=== PATIENT | male | born 1980 | race Caucasian/White ===

== ENCOUNTER → 2020-06-25 | Outpatient (CLI) | payer BC | END | disposition home or self-care (01) | LOC: LABWHC1 16:05 | PROVIDERS: ATTEND Ophthalmology | DX: T14.8XXA Other injury of unspecified body region, initial encounter (principal); R50.9 Fever, unspecified | CPT/HCPCS: 36415; 86611 ==

== ENCOUNTER → 2020-07-08 | Outpatient (CLI) | payer BC ==
[2020-07-08 23:32] LABS: Cardiolipin IgA Antibody 2.2 U/mL
[2020-07-08 23:33] LABS: Cardiolipin Ab IgG Interp NEGATIVE (NEGATIVE)
[2020-07-08 23:56] LABS: Cardiolipin Ab IgM Interp NEGATIVE (NEGATIVE); Cardiolipin IgM Antibody 0.6 U/mL
[2020-07-09 11:59] LABS: APTT 42 Sec(s) (<43); DRVVT 1:1 Mix 39 Sec(s) (<44); Dilute Russell Viper Venom 48 Sec(s) (<44)
[2020-07-11 02:32] LABS: Bartonella henselae Ab, IgG <1:64; Bartonella henselae Ab, IgM < 1:16
[2020-07-11 11:06] LABS: Lipoprotein A <5 mg/dL (0-30)
== END | disposition home or self-care (01) ==
LOC: LABWHC1 13:00
PROVIDERS: ATTEND Ophthalmology
DX: H34.232 Retinal artery branch occlusion, left eye (principal)
CPT/HCPCS: 36415; 83090; 83695; 85240; 85300; 85303; 85306; 85420; 85613; 85730; 86146; 86147; 86611

== ENCOUNTER → 2020-07-16 | Outpatient (CLI) | payer BC ==
--- NOTE | 2020-07-17 13:13 | MR ---
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 CONTRAST: Performed utilizing 10 mL intravenous Gadavist gadolinium contrast. TECHNIQUE: Multiplanar, multiecho imaging on a 3.0 Ying magnet is performed through the brain. Dedic ated images were performed through the orbits. Study is performed within 24 hours of arrival to the hospital. The craniovertebral junction is normal. The pituitary is normal. Optic chiasm is visualized is norm al. Normal vascular flow voids are present. Diffusion-weighted imaging is performed. No abnormal hyperintensity is present to suggest an acute i ntracranial infarct or acute ischemic change. Occipital lobes appear normal. Optic radiations appear normal. Punctate hyperintensities are in the subcortical white matter of the centrum semiovale bilaterally. T hese 3 lesions are within normal limits for patient of this age. These are nonspecific but could be r elated to microvascular ischemic change or migraine headaches among other etiologies. Ventricles and sulci are appropriate for the patient age. No dilated ventricles or diminished extra-a xial spaces are evident. There appears to be some increase fluid adjacent to the distal optic nerves bilaterally on T2 sequenc es.. The optic nerves themselves appear normal. Extraocular muscles are normal. No intraconal or extr aconal masses are evident. Superior ophthalmic veins appear normal. The globes are symmetrical. Following contrast administration no suspicious enhancement is evident within the visualized included portions. IMPRESSIONS: 1. There is some fluid surrounding the optic nerve especially distally and bilaterally on T2-weighted sequences. This has been associated with increased intracranial pressure. Consider additional evalua tion. 2. Pre and postcontrast MRI brain appears within normal limits without suspicious changes to suggest increased intracranial pressure to account for the optic nerve sheath fluid findings.
== END | disposition home or self-care (01) ==
LOC: RADMRIMAIN 20:24
PROVIDERS: ATTEND Ophthalmology
DX: H47.093 Other disorders of optic nerve, not elsewhere classified, bilateral (principal)
CPT/HCPCS: 70543; 70553; A9585

== ENCOUNTER → 2020-08-08 | Outpatient (CLI) | payer BC ==
--- NOTE | 2020-08-08 16:34 | US ---
EXAMINATION TYPE: US carotid duplex BILAT DATE OF EXAM: 08/08/2020 COMPARISON: NONE CLINICAL HISTORY: 39-year-old male H34.11 Central retinal artery occlusion, right eye. TECHNIQUE: Carotid duplex ultrasound examination. Indirect Doppler criteria was utilized. FINDINGS: EXAM MEASUREMENTS: RIGHT: Peak Systolic Velocity (PSV) cm/sec ----- Right CCA: 91.4 ----- Right ICA: 92.7 ----- Right ECA: 128.6 ICA/CCA ratio: 1.0 RIGHT: End Diastole cm/sec ----- Right CCA: 21.5 ----- Right ICA: 34.4 ----- Right ECA: 25.2 LEFT: Peak Systolic Velocity (PSV) cm/sec ----- Left CCA: 100.0 ----- Left ICA: 94.0 ----- Left ECA: 120.5 ICA/CCA ratio: 0.9 LEFT: End Diastole cm/sec ----- Left CCA: 25.9 ----- Left ICA: 38.3 ----- Left ECA: 22.0 VERTEBRALS (direction of flow): Right Vertebral: Antegrade Left Vertebral: Antegrade Rhythm: Normal Felt Hooker notes: No significant stenosis. IMPRESSION: No hemodynamically significant internal carotid artery stenosis on either side. Criteria for Assigning % of Stenosis / Diameter reduction (Estimation based on the indirect measurements of the internal carotid artery velocities (ICA PSV). 1. Normal (no stenosis)=ICA PSV < 125 cm/s: ratio < 2.0: ICA EDV<40 cm/s. 2. Less than 50% stenosis=ICA PSV < 125 cm/s: ratio < 2.0: ICA EDV<40 cm/s. 3. 50 to 69% stenosis=ICA PSV of 125 to 230 cm/s: ration 2.0 ? 4.0: ICA EDV 40-100 cm/s. 4. Greater than 70% stenosis to near occlusion= ICA PSV > 230 cm/s: ratio > 4.0: ICA EDV > 100 cm/s. 5. Near occlusion= ICA PSV velocities may be low or undetectable: variable ratio and ICA EDV. 6. Total occlusion=unable to detect flow.
--- NOTE | 2020-08-09 08:00 | ECHOF ---
Referral Reason:H34.11 central retinal artery occlusion MEASUREMENTS -------- HEIGHT: 180.3 cm WEIGHT: 99.8 kg BP: 120/80 RVIDd: 3.0 cm (< 3.3) IVSd: 1.1 cm (0.6 - 1.1) LVIDd: 4.6 cm (3.9 - 5.3) LVPWd: 1.1 cm (0.6 - 1.1) IVSs: 1.5 cm LVIDs: 3.0 cm LVPWs: 1.9 cm LA Diam: 3.2 cm (2.7 - 3.8) LAESV Index (A-L): 17.76 ml/m Ao Diam: 2.9 cm (2.0 - 3.7) AV Cusp: 2.4 cm (1.5 - 2.6) MV EXCURSION: 14.967 mm (> 18.000) MV EF SLOPE: 82 mm/s (70 - 150) EPSS: 0.4 cm MV E All: 0.73 m/s MV DecT: 206 ms MV A All: 0.42 m/s MV E/A Ratio: 1.76 FINDINGS -------- Sinus rhythm. This was a technically adequate study. The left ventricular size is normal. There is borderline concentric left ventricular hypertrophy. Overall left ventricular systolic function is normal with, an EF between 55 - 60 %. The diastolic filling pattern is normal for the age of the patient 6.67. The right ventricle is normal in size. Normal LA size by volume 22+/-6 ml/m2. The right atrial size is normal. Interatrial and interventricular septum intact. The aortic valve is trileaflet, and appears structurally normal. No aortic stenosis or regurgitation. The mitral valve is normal. There is trace mitral regurgitation. The tricuspid valve appears structurally normal. No regurgitation noted Trace/mild (physiologic) pulmonic regurgitation. The aortic root size is normal. Normal inferior vena cava with normal inspiratory collapse consistent with estimated right atrial pre ssure of 5 mmHg. There is no pericardial effusion. CONCLUSIONS -------- 1. There is borderline concentric left ventricular hypertrophy. 2. Overall left ventricular systolic function is normal with, an EF between 55 - 60 %. 3. Normal LA size by volume 22+/-6 ml/m2. 4. The aortic valve is trileaflet, and appears structurally normal. No aortic stenosis or regurgitati on. 5. There is trace mitral regurgitation. 6. Trace/mild (physiologic) pulmonic regurgitation. 7. There is no pericardial effusion. MATERIALS ENGINEER: Paula Singh RDCS
== END | disposition home or self-care (01) ==
LOC: RADUSWWP 13:58
PROVIDERS: ATTEND Family Medicine
DX: I37.1 Nonrheumatic pulmonary valve insufficiency (principal); H34.11 Central retinal artery occlusion, right eye
CPT/HCPCS: 93306; 93880

== ENCOUNTER → 2020-08-26 | Outpatient (CLI) | payer BC ==
--- NOTE | 2020-08-27 08:17 | CT ---
EXAMINATION TYPE: CT angio head neck DATE OF EXAM: 08/26/2020 COMPARISON: None HISTORY: Left eye blindness x1 month ago CT DLP: 1518.3 mGycm CONTRAST: Performed with IV Contrast, patient injected with 65 mL of Isovue 370. Combination Contrast CTA cervical carotids and [place] CTA cervical carotids with 3-D recons truction Contrast CTA of the cervical carotids was performed 3-D reconstruction imaging obtained at a separate workstation. Right carotid system: No significant plaque is seen of the right common carotid artery. There is No significant plaque also noted at the carotid bulb and proximal ICA. No significant diameter reduct ion. ECA is patent. Right vertebral artery appears unremarkable. Left carotid system: No significant plaque is seen of the left common carotid artery. There is No si gnificant plaque also noted at the carotid bulb and proximal ICA. No significant diameter reduction . ECA is patent. Left vertebral artery appears unremarkable. IMPRESSION: 1. No significant diameter reduction to account for the patient's symptoms. CTA [place] with 3-D reconstruction Contrast CTA of the [place] was performed 3-D reconstruction imaging obtained at a separate workstation. Vertebrobasilar system as well as intracranial portions of the internal carotid arteries and their ma catherine tributaries are patent. I do not see evidence for sizable aneurysm or vascular malformation. Pl ease note MRI provides greater sensitivity and specificity. Visualized brain appears grossly unremar kable. IMPRESSION: 1. No significant abnormality.
== END | disposition home or self-care (01) ==
LOC: RADCTMAIN 17:51
PROVIDERS: ATTEND Psychiatry & Neurology Neurology
DX: I67.9 Cerebrovascular disease, unspecified (principal)
CPT/HCPCS: 70496; 70498; Q9967

== ENCOUNTER → 2021-03-05 | Outpatient (CLI) | payer BC ==
--- NOTE | 2021-03-05 19:33 | CONS ---
CONSULTATION DATE OF SERVICE: 03/05/2021 40-year-old gentleman has been evaluated in Sleep Center for possible obstructive sleep apnea-hypopnea syndrome. HISTORY OF PRESENT ILLNESS/SLEEP WAKE EVALUATION: SLEEP SCHEDULE: Patient's usual sleep schedule from 10 p.m. to 5:30 a.m. on weekdays and from 10:00 pm- midnight until 7 a.m. on weekends. FALLING ASLEEP: No problems with falling asleep, although he has TV in bedroom. DURING SLEEP: He usually sleeps on the back and side position. He has loud snoring and he wakes up from sleep with episodes of nocturia. DURING THE DAY/SLEEP WAKE EVALUATION: In the morning, the patient wakes up tired, has difficulties paying attention, has problems with concentration. [place] Sleepiness Scale is 8. He is taking naps around 6:00 pm. Usually no vivid dreams during the naps. No history of hypnagogic hallucinations, sleep paralysis or cataplexy. PAST MEDICAL HISTORY: Positive for episodes of hemianopsia on 1 side and then on another side, hyperlipidemia, nasal breathing problems. 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 MEDICATIONS: Atorvastatin once a day. SOCIAL HISTORY: Positive for smoking for 26 years. Alcohol consumption rarely. FAMILY HISTORY: Cancer. REVIEW OF SYSTEMS: Snoring, feeling tiredness in the morning after awakenings, difficulties to concentrate. PHYSICAL EXAMINATION: GENERAL: gentleman without distress. BP 121/75, HR 55, RR 18, height 5 feet 11 inches, weight 238.0, body mass index 33.1, temperature 98 oxygen saturation at room air 98%. Oropharynx extremely low position of soft palate, Mallampati 4. NECK is 16-1/2 inches in circumference. Neck: Supple, no JVD. Thyroid is not palpable. LUNGS: Clear to percussion and to auscultation. Good air exchange. No wheezing or rhonchi. HEART: S1, S2 regular. No murmurs, gallops, or rubs. ABDOMEN: Soft and nontender. Bowel sounds are present. No organomegaly appreciated. EXTREMITIES: No clubbing or cyanosis. SANDING MACHINE BUFFER: Awake, alert, and oriented X3. Cranial nerves 2 to 7 intact. There is no fasciculation or atrophy. noted. No focal deficits observed. IMPRESSION: 1. Loud snoring, extremely low position of soft palate, possible obstructive sleep apnea-hypopnea syndrome. 2. Hyperlipidemia. 3. History of lost vision on the half of visual field first on 1 side and then on another side, possibly a stroke. 4. 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 5. Status post nasal surgery for nasal septum deviation. 6. Restriction of nasal breathing. PLAN: Thank you very much for referring this patient for consultation, Sincerely, Mario Cali MD, PhD, FAASM Diplomat of [employer] Sleep Medicine Board of [employer] Senior Service Technician of [facility] [place] MMODL / IJN: [id number] /
== END ==
LOC: SLEEP 16:36
PROVIDERS: ATTEND Internal Medicine
DX: R06.83 Snoring (principal); E78.5 Hyperlipidemia, unspecified; R06.89 Other abnormalities of breathing; Z90.81 Acquired absence of spleen; Z98.890 Other specified postprocedural states; Z86.69 Personal history of other diseases of the nervous system and sense organs
CPT/HCPCS: 99211

== ENCOUNTER → 2021-05-28 | Outpatient (CLI) | payer OTHER ==
--- NOTE | 2021-05-28 21:20 | SFUN ---
SLEEP CENTER FOLLOW UP NOTE DATE OF SERVICE: 05/28/2021 40-year-old gentleman has been followed in Sleep Center to discuss results of the sleep study and following plan. I discussed results of sleep studies inpatient with apnea with the patient in detail. Diagnostic polysomnogram showed mild obstructive sleep apnea with apnea-hypopnea index 5.3, in REM sleep 5.5, and periodic limb movements 24.1 times per hour. The patient continues to snore and sometimes feels tiredness and sleepiness during the day. The patient has history of changes of vision in the past. Possible stroke. MEDICATIONS: Atorvastatin. PHYSICAL EXAMINATION: GENERAL: Patient in no distress. BP 134/68, HR 76, RR 14, weight 237.4, temperature 97.4, oxygen saturation at room air 98%. Oropharynx: Short distance between soft palate. NECK: Supple, no JVD. Thyroid is not palpable. LUNGS: Clear to percussion and to auscultation. Good air exchange. No wheezing or rhonchi. HEART: S1, S2 regular. No murmurs, gallops, or rubs. ABDOMEN: Soft and nontender. Bowel sounds are present. No organomegaly appreciated. EXTREMITIES: No clubbing or cyanosis. ABSTRACTER: Awake, alert, and oriented X3. Cranial nerves 2 to 7 intact. There is no fasciculation or atrophy. noted. No focal deficits observed. IMPRESSION: 1. Mild obstructive sleep apnea-hypopnea syndrome. 2. Periodic limb movements have been documented during the sleep study. 3. Hyperlipidemia. 4. History of episodes of changing of vision, possibly a stroke. PLAN: 1. Patient will be started on treatment with AutoPAP with low level of pressure and small to medium nasal pillow mask. 2. Patient should use equipment every night for the whole night. 3. I offered the patient pharmacotherapy for periodic limb movements. At the present time, we decided not to initiate that treatment. 4. Sleep hygiene with regular time in bed for at least 8 hours. 5. No driving if feeling sleepiness. 6. Follow-up visit in 30-90 days after initiation of CPAP treatment. Thank you very much for allowing me to participate in management of your patient. Sincerely, Mario Cali MD, PhD, FAASM Diplomat of [employer] Sleep Medicine Board of [employer] Sleeve Setter Lockstitch of [facility] [place] MMODL / IJN: [id number] /
== END ==
LOC: SLEEP 13:40
PROVIDERS: ATTEND Internal Medicine
DX: G47.33 Obstructive sleep apnea (adult) (pediatric) (principal); G47.61 Periodic limb movement disorder; E78.5 Hyperlipidemia, unspecified; Z86.69 Personal history of other diseases of the nervous system and sense organs

== ENCOUNTER → 2023-08-18 | Outpatient (CLI) | payer OTHER ==
--- NOTE | 2023-08-18 18:18 | US ---
EXAMINATION TYPE: US scrotum with doppler. Grayscale and color Doppler Duplex imaging performed of messi odonnell scrotum. 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 Hx Vasectomy EXAM MEASUREMENTS: TESTICLES: Right Testicle: 3.9 x 2.5 x 3.8 cm Left Testicle: 4.1 x 2.2 x 3.2 cm EPIDIDYMIS HEAD: Right Epididymis: 1.1 x 1.3 x 0.7 cm Left Epididymis: 0.9 x 1.3 x 1.1 cm Doppler performed to assess for testicular vascularity; good bilateral color flow and waveforms are s een. There is no evidence of testicular torsion. Presence of hydroceles: No Presence of varicoceles: Yes IMPRESSION: 1. No evidence for intratesticular mass. 2. Appropriate arterial and venous spectral waveforms to the testes.. 3. Left varicoceles.
== END | disposition home or self-care (01) ==
LOC: RADUSWWP 15:52
PROVIDERS: ATTEND Family Medicine
DX: I86.1 Scrotal varices (principal); N50.0 Atrophy of testis; N50.812 Left testicular pain; Z98.52 Vasectomy status
CPT/HCPCS: 76870; 93975